=== PATIENT | female | born 1970 | race Caucasian/White ===

== ENCOUNTER 2017-09-09 13:38 | Outpatient (CLI) | payer MEDICARE | END 2017-09-09 13:39 | disposition home or self-care (01) | LOC: BICMAMMO 13:38 | PROVIDERS: ATTEND Family Medicine | DX: Z12.31 Encounter for screening mammogram for malignant neoplasm of breast (principal) | CPT/HCPCS: 77063; 77067 ==

== ENCOUNTER 2017-11-10 07:37 | Emergency (ER) | payer MEDICARE ==
[2017-11-10] MEDS ORDERED: Lidocaine Viscous Sol 2% 15 ml UD Cup ONE (08:33)
== END 2017-11-10 08:42 | disposition home or self-care (01) ==
LOC: ERS 07:37
DX: K02.9 Dental caries, unspecified (principal); E11.9 Type 2 diabetes mellitus without complications; E03.9 Hypothyroidism, unspecified; Z79.84 Long term (current) use of oral hypoglycemic drugs; Z79.899 Other long term (current) drug therapy
CPT/HCPCS: 99282

== ENCOUNTER 2018-08-11 15:08 | Emergency (ER) | payer MEDICARE ==
--- NOTE | 2018-08-11 16:27 | RAD ---
THREE VIEWS LEFT SHOULDER: 08/11/18 COMPARISON: None. HISTORY: Left shoulder pain that began this morning. FINDINGS: Three views of the left shoulder shows no evidence of acute fracture or dislocation. Ossific bodies a re seen along the insertion of the rotator cuff which may represent calcific tendinopathy. The visual ized left thorax is unremarkable. IMPRESSION: Rotator cuff calcific tendinopathy without acute osseous abnormality. POS: [facility]
== END 2018-08-11 18:05 | disposition home or self-care (01) ==
LOC: ERS 15:08
DX: M75.32 Calcific tendinitis of left shoulder (principal); E11.9 Type 2 diabetes mellitus without complications; E03.9 Hypothyroidism, unspecified; Z79.84 Long term (current) use of oral hypoglycemic drugs; Z79.899 Other long term (current) drug therapy

== ENCOUNTER 2019-04-29 22:39 | Emergency (ER) | payer MEDICARE | END 2019-04-29 23:43 | disposition home or self-care (01) | LOC: ERS 22:39 | DX: R51 Headache (principal); E11.9 Type 2 diabetes mellitus without complications; E03.9 Hypothyroidism, unspecified; Z79.84 Long term (current) use of oral hypoglycemic drugs; Z79.899 Other long term (current) drug therapy | CPT/HCPCS: 99283 ==

== ENCOUNTER 2019-06-21 08:41 | Outpatient (CLI) | payer MEDICARE ==
--- NOTE | 2019-06-21 09:20 | RAD ---
Exam: XR Knee Lt 3 View HISTORY: Acute pain left knee. COMPARISON: None FINDINGS: Few tiny scattered osteophytes are seen about the left knee. Calcifications are seen overlying the me dial joint compartment suggesting chondrocalcinosis. No acute fracture, dislocation, or other acute osseous abnormality is identified. IMPRESSION: 1. No acute osseous abnormality. 2. Minimal osteoarthritis. 3. Chondrocalcinosis involving the medial joint compartment.
--- NOTE | 2019-06-21 09:36 | MMO ---
Bilateral MAMMO Bilat Screen [facility]. CLINICAL HISTORY: Patient is 49 years old and is seen for screening. The patient has the following family history of breast cancer: great grandmother, malignant (generic), maternal. The patient has no personal history of cancer. VIEWS: The views performed were: bilateral craniocaudal with tomosynthesis and bilateral mediolateral oblique with tomosynthesis. FILMS COMPARED: The present examination has been compared to a prior imaging study performed at [facility] on 09/09/2017. This study has been interpreted with the assistance of computer-aided detection. MAMMOGRAM FINDINGS: There are scattered fibroglandular densities. There are no suspicious masses, suspicious calcifications, or new areas of architectural distortion. IMPRESSION: THERE IS NO MAMMOGRAPHIC EVIDENCE OF MALIGNANCY. A ROUTINE FOLLOW-UP MAMMOGRAM IN 1 YEAR IS RECOMMENDED. THE RESULTS OF THIS EXAM WERE SENT TO THE PATIENT. ACR BI-RADS Category 1 - Negative MAMMOGRAPHY NOTE: 1. A negative mammogram report should not delay a biopsy if a dominant of clinically suspicious mass is present. 2. Approximately 10% to 15% of breast cancers are not detected by mammography. 3. Adenosis and dense breasts may obscure an underlying neoplasm. Reported by: DEBBIE SANTOYO MD Electonically Signed: [id number]
== END 2019-06-21 08:42 | disposition home or self-care (01) ==
LOC: BICMAMMO 08:41
PROVIDERS: ATTEND Family Medicine
DX: Z12.31 Encounter for screening mammogram for malignant neoplasm of breast (principal); M25.562 Pain in left knee; M17.12 Unilateral primary osteoarthritis, left knee; M11.262 Other chondrocalcinosis, left knee; Z80.3 Family history of malignant neoplasm of breast
CPT/HCPCS: 77063; 77067

== ENCOUNTER 2019-11-22 00:58 | Emergency (ER) | payer MEDICARE ==
[2019-11-22 01:18] LABS: Bacteria/HPF None Seen HPF (None Seen); Bilirubin Negative (Negative); Blood, Urine Negative (Negative); Clarity Turbid (Clear); Glucose, Urine (Dipstick) Normal (Negative); Ketone, Urine Negative (Negative); Leukocyte 75 Leu/uL (Negative); Nitrite Negative (Negative); Protein, Urine (Dipstick) Negative (Neg-Trace); RBC/HPF 0-3 HPF (0-3); Specific Gravity, Urine 1.019 (1.002-1.036); Squamous Epithelial 0-3 HPF (0-3); pH, Urine 7.5 (5.0-9.0)
[2019-11-22 01:45] LABS: Pregnancy Test - Urine (BHCG) Negative (Negative); Pregu Control Background? CLEAR/WHITE (CLR/WHITE); Pregu Control Bar Appear? YES (CONTROL BAR); Specific Gravity 1.019 (1.002-1.036)
== END 2019-11-22 02:18 | disposition home or self-care (01) ==
LOC: ERS 00:58
DX: N39.0 Urinary tract infection, site not specified (principal); E11.9 Type 2 diabetes mellitus without complications; E03.9 Hypothyroidism, unspecified; Z79.84 Long term (current) use of oral hypoglycemic drugs; Z79.899 Other long term (current) drug therapy
CPT/HCPCS: 81003; 81015; 81025; 87086; 99283

== ENCOUNTER 2020-06-10 07:03 | Emergency (ER) | payer MEDICARE ==
--- NOTE | 2020-06-10 07:53 | RAD ---
Radiograph left shoulder 3 views: 06/10/2020 HISTORY: 50-year-old female with nontraumatic acute shoulder pain FINDINGS: There are several soft tissue calcifications, at least 2 very close to the superior lateral surface o f the humeral head, and 1 abutting distal lateral tip of acromion. No high-grade DJD of glenohumeral joint. Mild to moderate DJD AC joint. No fracture or dislocation. 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
--- NOTE | 2020-06-10 09:05 | RAD ---
RADIOGRAPH CHEST 1 VIEW: DATE: 06/10/2020 HISTORY: 50-year-old female with chest pain COMPARISON: 02/08/2012 FINDINGS: There are no airspace densities, pulmonary edema, pneumothorax, or cardiomegaly. The lateral costophr enic angles are sharp. There is a new finding of a tiny hyperdense stellate opacity overlying the left upper lung zone, appa rently new since the prior study. There are degenerative changes at the bilateral first sternocostal junctions, and this stellate density could be part of that. However, the possibility of a pulmonary lesion is not excluded. IMPRESSION: 1. No acute cardiopulmonary findings. 2. Questionable tiny stellate left upper lobe pulmonary nodule. Recommend apical lordotic view.
[2020-06-10 09:26] LABS: #Basophils 0.1 thou/uL (0.0-0.2); #Eosinphils 0.2 thou/uL (0.0-0.7); #Lymphocytes 2.5 thou/uL (1.20-3.40); #Monocytes 0.6 thou/uL (0.11-0.59); #Neutrophils 7.6 thou/uL (1.40-6.50); %Basophils 0.7 % (0.0-1.0); %Eosinophils 1.9 % (0.0-10.0); %Lymphocytes 22.6 % (21.0-51.0); %Monocytes 5.5 % (0.0-10.0); %Neutrophils 69.4 % (42.0-75.0); Hemoglobin 13.7 g/dL (12.0-16.0); Mean Corpuscular HGB CONC 33.7 g/dL (32.0-36.0); Mean Corpuscular Hemoglobin 31.5 pg (27.0-31.0); Mean Corpuscular Volume 93.4 fL (78.0-98.0); Mean Platelet Volume 8.6 fL (7.4-10.4); Platelet Count 271 thou/uL (130-400); RBC Distribution Width 12.5 % (11.5-14.5); Red Blood Cell (RBC) Count 4.35 mill/uL (4.20-5.40)
[2020-06-10] MEDS ORDERED: Ketorolac Tromethamine 30 MG/ML VIAL ONE (09:31)
[2020-06-10 09:40] LABS: ALT (SGPT) 17 U/L (8-55); AST (SGOT) 15 U/L (5-34); Albumin 4.4 g/dL (3.5-5.0); Alkaline Phosphatase 93 U/L (40-110); Anion Gap 14 mmol/L (10-20); BUN (Urea Nitrogen) 16 mg/dL (7.0-18.7); Bilirubin, Total 0.6 mg/dL (0.2-1.2); Calc. Creatinine Clearance 0 mL/min (70-130); Calcium 9.5 mg/dL (7.8-10.44); Carbon Dioxide 27 mmol/L (22-29); Chloride 103 mmol/L (98-107); Globulin 3.3 g/dL (2.4-3.5); Glucose 108 mg/dL (70-105); Potassium 4.8 mmol/L (3.5-5.1); Protein, Total 7.7 g/dL (6.0-8.3); Sodium 139 mmol/L (136-145)
== END 2020-06-10 10:02 | disposition home or self-care (01) ==
LOC: ERS 07:03
DX: M75.32 Calcific tendinitis of left shoulder (principal); R91.1 Solitary pulmonary nodule; E11.9 Type 2 diabetes mellitus without complications; E03.9 Hypothyroidism, unspecified; Z79.84 Long term (current) use of oral hypoglycemic drugs; Z79.899 Other long term (current) drug therapy
CPT/HCPCS: 36415; 71045; 80053; 84484; 85025; 93005; J1885

== ENCOUNTER 2020-06-11 10:09 | Outpatient (CLI) | payer MEDICARE ==
--- NOTE | 2020-06-11 10:58 | RAD ---
XR Chest 1 View History: Pulmonary nodule Comparison: Radiograph prior day Findings: Heart size mildly enlarged. No pneumothorax. No effusion. No airspace consolidation. No acu te osseous abnormality. Previously described nodules likely anterior first left costochondral junction. Impression: Corresponding to the aforementioned pulmonary nodule is a prominent left anterior first c ostochondral junction.
== END 2020-06-11 10:10 | disposition home or self-care (01) ==
LOC: BICRAD 10:09
PROVIDERS: ATTEND Family Medicine
DX: R91.1 Solitary pulmonary nodule (principal)
CPT/HCPCS: 71045

== ENCOUNTER 2021-05-10 19:08 | Emergency (ER) | payer MEDICARE ==
[2021-05-11 13:13] LABS: SARS-CoV-2 PCR by NAA Not Detected (NotDetected)
== END 2021-05-10 19:41 | disposition home or self-care (01) ==
LOC: ERS 19:08
DX: B34.9 Viral infection, unspecified (principal); E11.9 Type 2 diabetes mellitus without complications; E03.9 Hypothyroidism, unspecified; Z20.822 Contact with and (suspected) exposure to COVID-19
CPT/HCPCS: U0003; U0005; 99283

== ENCOUNTER 2022-04-14 08:59 | Emergency (ER) | payer OTHER, MEDICARE | END 2022-04-14 10:38 | disposition home or self-care (01) | LOC: ERS 08:59 | DX: S20.212A Contusion of left front wall of thorax, initial encounter (principal); E11.9 Type 2 diabetes mellitus without complications; E03.9 Hypothyroidism, unspecified; W01.190A Fall on same level from slipping, tripping and stumbling with subsequent striking against furniture, initial encounter | CPT/HCPCS: 71045; 93005 ==

== ENCOUNTER 2023-11-16 14:57 | Outpatient (CLI) | payer MEDICARE | END 2023-11-16 14:58 | disposition home or self-care (01) | LOC: BICMAMMO 14:57 | PROVIDERS: ATTEND Family Medicine | DX: Z12.31 Encounter for screening mammogram for malignant neoplasm of breast (principal); Z80.3 Family history of malignant neoplasm of breast | CPT/HCPCS: 77063; 77067 ==

== ENCOUNTER 2024-02-01 13:18 | Emergency (ER) | payer MEDICARE ==
[2024-02-01] MEDS ORDERED: Boostrix 0.5 ML (Tdap) VIAL (>/=7 yrs of age) ONE ×2 (14:02→14:03)
== END 2024-02-01 14:23 | disposition home or self-care (01) ==
LOC: ERS 13:18
DX: S61.253A Open bite of left middle finger without damage to nail, initial encounter (principal); W53.01XA Bitten by mouse, initial encounter
CPT/HCPCS: 90471; 90715